=== PATIENT | male | born 1945 | race Caucasian/White ===

== ENCOUNTER → 2019-03-18 | Outpatient (CLI) | payer OTHER ==
[~2019-03-18] MED LIST: ADVAIR HFA 1112 UNIT; ALBUTEROL INH INH; AMARYL4 MG; ASPIRIN EC81 M1; AUGMENTIN 875875 M1 PO; CARVEDILOL12.5 MG; CIPROFLOXACIN500 M1; COPPER2 MG; DEMADEX20 MG; FISHOIL; GLUCOPHAGE1000 MG; GLUCOSAMINE CH1 EAC7; HYDRALAZINE 5050 MG; K-DUR10 MEQ PO; LASIX 80 MG TAB80 M1 PO; LUTEIN10 MG; OMEGA-31000 MG; POTASSIUM20; SINGULAIR 10 MG10 M1 PO; TAMSULOSIN HCL0.4 MG; TEKTURNA HCT 11 EACH; VASOTEC20 MG; VITAMIN D-32000 UNIT; VITAMIN E400 UNIT; VITAMINC500; ZINC CHELATE50 MG; ZOCOR 20 MG TAB20 M1
--- NOTE | 2019-03-18 16:32 | 2DMMODE ---
[place] [address] 2 D/M-MODE ECHOCARDIOGRAM Name: MIGUELJAROD Gilbert Room: [facility]#: [id number] Admission: 03/18/19 Attend Phys: Bhanu Dennison, Discharge: Date of : 41 Date of Service: 03/18/19 1632 Report #: [id number] THIS REPORT FOR: //name// APPROVED REPORT Study performed: 03/18/2019 12:48:22 EXAM: Comprehensive 2D, Doppler, and color-flow Echocardiogram Patient Location: Out-Patient BSA: 2.38 HR: 60 bpm BP: 150/80 mmHg Other Information Study Quality: Fair Indications Congestive Heart Failure 2D Dimensions IVSd: 15.85 (7-11mm) LVOT Diam: 20.50 (18-24mm) LVDd: 55.21 mm PWd: 13.44 (7-11mm) Ascending Ao: 37.53 (22-36mm) LVDs: 39.20 (25-40mm) Aortic Root: 31.52 mm Volumes Left Atrial Volume (Systole) LA ESV Index: 26.70 mL/m2 Aortic Valve AoV Peak Abelardo.: 1.48 m/s AO Peak Gr.: 8.75 mmHg LVOT Max P.04 mmHg AO Mean Gr.: 4.21 mmHg LVOT Mean P.41 mmHg LVOT Max V: 1.12 m/s AO V2 VTI: 30.13 cm LVOT Mean V: 0.71 m/s NJ (VTI): 2.92 cm2 LVOT V1 VTI: 26.68 cm Mitral Valve E/A Ratio: 1.09 MV Decel. Time: 223.77 ms MV E Max Abelardo.: 0.86 m/s MV PHT: 64.89 ms MVA (PHT): 3.39 cm2 [place] [address] 2 D/M-MODE ECHOCARDIOGRAM Name: JAROD RIVERA Room: [facility]#: [id number] Admission: 03/18/19 Attend Phys: Bhanu Dennison, Discharge: Date of : 41 Date of Service: 03/18/19 1632 Report #: [id number] TDI E/Lateral E': 14.33 E/Medial E': 14.33 Medial E' Abelardo.: 0.06 m/s Lateral E' Abelardo.: 0.06 m/s Pulmonary Valve PV Peak Abelardo.: 1.09 m/s PV Peak Gr.: 4.79 mmHg Left Ventricle The left ventricle is normal size. There is normal LV segmental wall motion. Mild concentric left ventricular hypertrophy. Left ventricular systolic function is normal. LVEF is 55-60%. Transmitral Doppler flow pattern suggests impaired LV relaxation. Right Ventricle The right ventricle is normal size. The right ventricular systolic function is normal. Atria The left atrium size is normal. The right atrium size is normal. Aortic Valve Aortic valve is mildly calcified. Mild aortic regurgitation. There is no aortic valvular stenosis. Mitral Valve The mitral valve is normal in structure. There is no mitral valve regurgitation noted. No evidence of mitral valve stenosis. Tricuspid Valve The tricuspid valve is normal in structure. There is no tricuspid valve regurgitation noted. Pulmonic Valve The pulmonary valve is normal in structure. There is no pulmonic valvular regurgitation. Great Vessels The aortic root is normal in size. IVC is normal in size and collapses >50% with inspiration. Pericardium There is no peric[place] [address] 2 D/M-MODE ECHOCARDIOGRAM Name: JAROD RIVERA Room: [facility]#: [id number] Admission: 03/18/19 Attend Phys: Bhanu Dennison, Discharge: Date of : 41 Date of Service: 03/18/19 1632 Report #: [id number] <Conclusion> The left ventricle is normal size. Mild concentric left ventricular hypertrophy. Left ventricular systolic function is normal. LVEF is 55-60%. Transmitral Doppler flow pattern suggests impaired LV relaxation. Aortic valve is mildly calcified. Mild aortic regurgitation. IVC is normal in size and collapses >50% with inspiration. <ELECTRONICALLY SIGNED> By: Chapin Suarez MD, FACC 03/18/19 163 31 31 Chapin Suarez MD, FACC /INF
== END ==
LOC: M.CRD 12:36
DX: I35.8 Other nonrheumatic aortic valve disorders (principal); I35.1 Nonrheumatic aortic (valve) insufficiency; I51.7 Cardiomegaly

== ENCOUNTER 2019-10-16 10:49 | Inpatient (IN) | payer OTHER ==
[~2019-10-16] VITALS: Ht 177.8 cm; Wt 107.5 kg
[~2019-10-16 10:49] MED LIST changes: -ASPIRIN EC81 M1; +ASPIRIN EC81 M1 PO; -CARVEDILOL12.5 MG; +CARVEDILOL25 MG PO; -TAMSULOSIN HCL0.4 MG; +TAMSULOSIN HCL0.4 MG PO
[2019-10-16 10:51] VITALS: BP 128/59
[2019-10-16] MEDS ORDERED: SPIRONOLACTONE25 MG PO (11:06)
[2019-10-16] MEDS ORDERED: DOXAZOSIN MESYLA4 MG PO (11:06)
[2019-10-16] MEDS ORDERED: CLONIDINE HCL0.2 M2 PO (11:06)
[2019-10-16] MEDS ORDERED: PRESERVISION T1 EACH PO (11:07)
[2019-10-16 11:47] LABS: ABSOLUTE BASOPHILS 0.1 thou/uL (0.0-0.2); ABSOLUTE LYMPHOCYTES 1.5 thou/uL (0.8-5.3); ABSOLUTE MONOCYTES 1.1 thou/uL (0.0-1.2); ABSOLUTE NEUTROPHILS 11.6 thou/uL (1.6-8.1); BASOPHILS 0.5 %; HEMATOCRIT 34.2 % (42.0-52.0); HEMOGLOBIN 11.5 gm/dL (14.0-18.0); LYMPHOCYTES 10.7 %; MCH 28.2 pg (26.0-34.0); MCHC 33.5 g/dL (28.0-37.0); MCV 84.1 fL (80.0-100.0); MONOCYTES 7.5 %; MPV 9.7 fl. (7.2-11.1); NUCLEATED RBCS 0 /100WBC; PLATELET COUNT* 221 thou/uL (150-400); POLYS 81.3 %; RBC 4.07 mil/uL (4.50-6.00); RDW-CV 15.4 % (10.5-14.5); WBC 14.3 thou/uL (4.0-11.0)
[2019-10-16 12:02] LABS: APTT 27.5 Seconds (25.0-31.3); INR 1.1; PROTIME 11.6 Seconds (9.20-11.50)
[2019-10-16 12:24] LABS: CALCIUM 9.5 mg/dL (8.5-10.1); CREATININE 3.5 mg/dL (0.6-1.3); POTASSIUM 4.5 mmol/L (3.5-5.1)
[2019-10-16 12:27] LABS: ALBUMIN 3.7 g/dL (3.4-5.0); TOTAL BILIRUBIN 0.4 mg/dL (<0.1-1.0); TOTAL PROTEIN 7.5 g/dL (6.4-8.2)
--- NOTE | 2019-10-16 13:09 | NUR ---
YANELI NOTFIED UPON PT RETURN FROM CT. PT CONNECTED TO MONITOR
[2019-10-16 13:49] LABS: URINE BILIRUBIN NEGATIVE (Negative); URINE BLOOD NEGATIVE (Negative); URINE CLARITY CLEAR; URINE COLOR YELLOW; URINE GLUCOSE-RANDOM NEGATIVE (Negative); URINE KETONES NEGATIVE (Negative); URINE LEUKOCYTES-REFLEX NEGATIVE (Negative); URINE NITRITE-REFLEX NEGATIVE (Negative); URINE PROTEIN NEGATIVE (Negative); URINE UROBILINOGEN 0.2 E.U./dl (0.2-1.0)
--- NOTE | 2019-10-16 14:59 | NUR ---
OBSERVED BED SORE ON BUTTOCKS OF PT. PT STATES HE HAS HAD THAT BED SORE FOR YEARS AND HE JUST PUTS OINTMENT ON IT AT HOME. REPOSITIONED PT TO LEFT SIDE AT 1430
[2019-10-16 15:01] VITALS: BP 133/55
[2019-10-16 15:30] VITALS: BP 123/61
[2019-10-16] MEDS ORDERED: GLIPIZIDE 10 MG10 MG PO (15:51)
[2019-10-16] MEDS ORDERED: TORSEMIDE20 MG PO (15:52)
[2019-10-16] MEDS ORDERED: HYDRALAZINE 5050 MG PO (15:53)
[2019-10-16] MEDS ORDERED: FENOFIBRATE145 MG PO (16:01)
--- NOTE | 2019-10-16 17:18 | EKG ---
[place] [address] ELECTROCARDIOGRAM REPORT Name: JAROD RIVERA Room: [address] ADM IN M.R.#: [id number] Admission: 10/16/19 Attend Phys: Erin Santizo Discharge: Date of : 41 Report #: [id number] THIS REPORT FOR: //name// [facility] ED Test Date: 2019-10-16 Test Time: 11:19:57 Pat Name: JAROD RIVERA Department: Room: [facility] Gender: M Crop Supervisor: : 1945 Requested By: Luz Maria Garza Order Number: [id number] MD: Chapin Suarez Measurements Intervals [place] Rate: 57 P: -38 NH: 299 QRS: -4 QRSD: 110 T: 59 QT: 464 QTc: 452 Interpretive Statements Sinus rhythm Prolonged NH interval Compared to ECG 07/24/2011 21:07:41 First degree AV block now present Myocardial infarct finding no longer present Electronically Signed On 10-16-2019 17:17:35 STUDENT OUTREACH COORDINATOR by Chapin Suarez [email or web address] <ELECTRONICALLY SIGNED> By: Chapin Suarez MD, FACC 10/16/19 1717 1119 1119 Chapin Suarez MD, [facility] /EPI
--- NOTE | 2019-10-16 18:38 | NUR ---
PATIENT ARRIVED FROM ER THIS AFTERNOON. PATIENT SETTLED TO ROOM. ULTRASOUND COMPLETED AT BEDSIDE. PATIENT DENIES ANY PAIN. PATIENT VOIDED WITH POST VOID RESIDUAL OF 313ML. ORDERS FOR MULLEN AND ENEMA, MULLEN PLACE WITHOUT INCIDENT AND ENEMA GIVEN. PATIENT TOLERATING CLEAR LIQUID DIET. PATIENT DENIES ANY NEEDS AT THIS TIME. CALL LIGHT WITHIN REACH.
[2019-10-17 04:35] LABS: HEMATOCRIT 30.2 % (42.0-52.0); HEMOGLOBIN 10.6 gm/dL (14.0-18.0); MCV 82.9 fL (80.0-100.0); RBC 3.65 mil/uL (4.50-6.00); RDW-CV 15.2 % (10.5-14.5); WBC 11.5 thou/uL (4.0-11.0)
[2019-10-17 04:50] LABS: ALBUMIN 3.1 g/dL (3.4-5.0); CALCIUM 8.1 mg/dL (8.5-10.1); CREATININE 2.7 mg/dL (0.6-1.3); MAGNESIUM 2.2 mg/dL (1.8-2.4); POTASSIUM 3.7 mmol/L (3.5-5.1); TOTAL BILIRUBIN 0.4 mg/dL (<0.1-1.0)
--- NOTE | 2019-10-17 05:09 | NUR ---
PT GIVEN GOLYTELY AT START OF SHIFT. PT DRANK ALMOST HALF BEFORE SMALL BOWEL MOVEMENT. PT IS RESTING AT THIS TIME. CALL LIGHT IN REACH.
[2019-10-17 08:05] VITALS: BP 142/55
--- NOTE | 2019-10-17 13:52 | NUR ---
Nutrition: Pt admitted for renal failure/constipation. Assessed for pressure ulcer risk, on buttock. BG 215, albumin 3.1. CLD, good po intake. Wt: 237#. On insulin. Mild nutrition risk. GOALS: advance diet to goal of CHO controlled, tight BG control.
--- NOTE | 2019-10-17 15:28 | NUR ---
WOUND CARE NOTE: PHYSICIAN REQUESTED ASSESSMENT OF RIGHT LEG. PATENT PRESENTS WITH DISCOLORED AREA TO THE ANTERIOR RIGHT MARSH. PATIENTS FAMILY MEMBER STATES THIS WAS A BLISTER THAT RUPTURED THEN DETERIORATED. FAMILY MEMBER STATED THEY HAVE BEEN USING SANTYL ON THIS AT HOME. AREA HAS HEALED. NEW EPITHELIUM COVERING ENTIRETY OF THE WOUND BED. AREA IS DISCOLORED. EDUCATED FAMILY AND PATINET ON PROTECTING THE AREA, COMMUNICATED UNDERSTANDING. RECOMMEND PROTECT AREA FROM TRAUMA/SUN EXPOSURE TO ENSURE REOPENING DOES NOT OCCUR
[2019-10-17 15:30] VITALS: BP 138/59
--- NOTE | 2019-10-17 16:09 | NUR ---
SW met with pt and pt to complete initial assessment, introduce self, and SW role. Pt communicated with SW, pt was silent but alert. Pt lives at home with and is current with [facility] HH services. Pt explained that she discussed options of SNF vs HH with Dr Kelsey but that pt had expressed not wanting to go to SNF. Goal would be home with and HH to resume upon dc. Therapies to evaluate pt needs as well. SW discussed DPOA/AD information and provided forms for pt and pt to review; pt plans to complete and call for notary when ready to sign. SW to continue to follow to assist with safe dc planning.
--- NOTE | 2019-10-17 18:38 | NUR ---
PATIENT RESTING IN BED. PATIENT DENIES ANY PAIN. PATIENT HAS HAD SEVERAL LARGE BOWEL MOVEMENTS TODAY. PATIENT HAS MULLEN CATHETER WITH EXCELLENT OUTPUT. PATIENT HAS GOOD APPETITE. PATIENT DENIES ANY NEEDS AT THIS TIME. CALL LIGHT WITHIN REACH. WILL CONTINUE TO MONITOR.
[2019-10-17 20:00] VITALS: BP 128/48
--- NOTE | 2019-10-18 05:43 | NUR ---
ASSUMED CARE AT 1930. PATIENT RESTED IN BED ALL SHIFT. INCONTINENT OF STOOL, SKIN CARE GIVEN. IVF INFUSING TO RAC. RT MARSH DRESSING C/D/I. NO C/O PAIN. MULLEN DRAINING ANDRE URINE. HOURLY ROUNDS CONTINUE. BED ALARM ON. CALL LITE IN REACH.
[2019-10-18 05:52] VITALS: BP 157/70
[2019-10-18 09:12] LABS: CALCIUM 7.9 mg/dL (8.5-10.1); CREATININE 1.9 mg/dL (0.6-1.3); POTASSIUM 3.4 mmol/L (3.5-5.1)
[2019-10-18 09:45] VITALS: BP 138/64
[2019-10-18 16:00] VITALS: BP 136/57
--- NOTE | 2019-10-18 18:51 | NUR ---
ALERT AND ORIENTED X4. SAT ON SIDE OF BED TODAY. REPOSITIONED/TURNED AT LEAST EVERY 2 HOURS. CREAM APPLIED TO AREA ON LEFT BUTTOCK. DRY DRESSING REMAINS INTACT OVER WOUND ON RIGHT MARSH. INCONTINENT OF LOOSES STOOL X2 TODAY. NO C/O PAIN. CONTINUES TO RECEIVE IVF AT 75ML/HR, CONTINUES TO RECEIVE BREATHING TREATMENTS TO KEEP O2 SAT IN 90'S. CALL LIGHT WITHIN REACH.
[2019-10-18 21:30] VITALS: BP 161/67
--- NOTE | 2019-10-19 05:41 | NUR ---
ASSUMED CARES AT 1920. ALERT AND ORIENTED. PLEASANT. CPAP AT NIGHT. IV TO RIGHT AC WITH NS @ 75 CC/HR. MULLEN CATHTER DD YELLOW URINE. HAD LIQUID STOOL INCONTINENCE. PT SAID THAT DID NOT SLEEP WELL LIKED. CALL LIGHT IN REACH.
[2019-10-19 05:55] VITALS: BP 159/68
[2019-10-19 08:17] VITALS: BP 147/60
[2019-10-19 13:00] VITALS: BP 142/60
[2019-10-19 16:00] VITALS: BP 148/62
--- NOTE | 2019-10-19 18:36 | NUR ---
ASSUMMED CARE OF PT AT 0730, PT ALERT AND ORIENTED,PT DENIES PAIN THIS SHIFT, PT REPOSTIONED EVERY 2 HOURS, NEEDS ASSISTANCE TO ROLL ON SIDES, PT REFUSED TO GET IN CHAIR, PT STATES SLEPT POORLY LAST NIGHT AT HOME HE SLEEPS IN RECLINER, OFFERED TO GET PT RECLINER BUT PT NOT SURE IF HE WANTS ONE OR NOT, MULLEN PATENT AND DRAINING ANDRE URINE, TAKING FOOD AND FLUIDS WELL, IV SALINE LOCK IN RIGHT AC, DRESSING CHANGED TO RIGHT LE, BUTTOCKS RED, BARRIER OINTMENT APPLIED, MODERATE DARK BROWN STOOL X 1 IN BEDPAN AND INCONTINENT X 1 OF STOOL, ASSESSMENT COMPLETE, HOURLY ROUNDING COMPLETED, WILL CONTINUE TO MONITOR.
[2019-10-19 19:50] VITALS: BP 127/73
[2019-10-19 23:57] VITALS: BP 102/60
[2019-10-20 05:46] LABS: HEMATOCRIT 28.2 % (42.0-52.0); HEMOGLOBIN 9.9 gm/dL (14.0-18.0); MCH 29.1 pg (26.0-34.0); MCV 83.1 fL (80.0-100.0); RBC 3.39 mil/uL (4.50-6.00); RDW-CV 15.4 % (10.5-14.5); WBC 8.3 thou/uL (4.0-11.0)
[2019-10-20 05:59] LABS: ALBUMIN 2.6 g/dL (3.4-5.0); CALCIUM 7.4 mg/dL (8.5-10.1); CREATININE 1.7 mg/dL (0.6-1.3); POTASSIUM 3.5 mmol/L (3.5-5.1); TOTAL BILIRUBIN 0.4 mg/dL (<0.1-1.0); TOTAL PROTEIN 6.2 g/dL (6.4-8.2)
--- NOTE | 2019-10-20 06:09 | NUR ---
PT ALERT AND ORIENTED. VSS ON RA. CPAP @HS. PT ADMITTED TO SLEPEING BETTER THAN HE EVER HAS SINCE BEING IN THE HOSPITAL. Q2 TURN. MULLEN IN PLACE. CALL LIGHT WITHIN REACH. HOURLY ROUNDINGS MADE. WILL CONTINUE PLAN OF CARE.
[2019-10-20 07:08] VITALS: BP 163/76
--- NOTE | 2019-10-20 07:58 | NUR ---
PT'S CATHETER WAS LEAKING THIS AM. COMPLETE BEDCHANGE HAD TO BE DONE. PT WANTED NEW CATHETER INSERTED. OLD CATHETER DC'D AND NEW CATHETER INSERTED.
--- NOTE | 2019-10-20 12:26 | NUR ---
ASSUMED CARE OF PATIENT AT 1200, REPORT RECEIVED FROM BERNY MORELOS. AGREE WITH PREVIOUS ASSESSMENT. DENIES ANY PAIN. MULLEN PATENT AND DRAINING. AT BEDSIDE. CALL LIGHT WITHIN REACH. WILL CONTINUE WITH PLAN OF CARE.
--- NOTE | 2019-10-20 14:20 | NUR ---
WOUND NURSE: PATIENT SEEN TO ADDRESS POTENTIAL LESION ON BUTTOCKS, BUT PATIENT WAS IN THE MIDDLE OF HIS LUNCH WHILE VISITING WITH HIS . HIS NURSE, MOLLY REPORTS THEY ARE USING BARRIER CREAM NOW. EXPLAINED TO PATIENT I WOUND RESCHEDULE FOR HIM TO BE SEEN TOMORROW. HE AND HIS ARE IN AGREEMENT WITH THIS.
[2019-10-20 16:15] VITALS: BP 154/74
--- NOTE | 2019-10-20 16:22 | NUR ---
SPOKE WITH UROLOGY NURSE PRACTITIONER AND ORDERS RECEIVED REGARDING MULLEN BEING DISCONTINUED. INFORMED PATIENT OF NEW ORDERS AND PATIENT REFUSED AT THIS TIME TO HAVE MULLEN REMOVED AND WILL WAIT UNTIL MORNING FOR VOIDING TRIAL. AT BEDSIDE DURING THIS TIME. CALL LIGHT WITHIN REACH. WILL CONTINUE WITH PLAN OF CARE.
--- NOTE | 2019-10-20 16:47 | NUR ---
PATIENT HAS BEEN A/O X 4. HAD COMPLAINTS OF PAIN FROM MULLEN CATHETER, ADDRESSED WITH UROLOGY AND PATIENT WANTING TO WAIT TO HAVE MULLEN REMOVED IN AM PLANNED. PATIENT TURNED EVERY 2 HOURS. BLOOD SUGAR MONITORED AND INSULIN GIVEN WITH LUNCH. PATIENT INCONTINENT OF STOOL X 1 THIS AFTERNOON. MULLEN PATENT AND DRAINING. AT BEDSIDE THROUGHOUT THE SHIFT. WORKED WITH PT/OT THIS SHIFT. HOURLY ROUNDING COMPLETED. CALL LIGHT WITHIN REACH. REPORT GIVEN TO BERNY PARTIDA WHO WILL BE ASSUMING CARE OF PATIENT. WILL CONTINUE WITH PLAN OF CARE.
--- NOTE | 2019-10-20 17:43 | NUR ---
SW met with pt and pt who are now wanting pt to be able to dc to inpt rehab [facility] or possible to SNF if unable to be accepted to inpt rehab. SW to continue to follow to assist with safe dc planning/placement; will be pending acceptance and insurance auth.
[2019-10-20 21:00] VITALS: BP 185/86
[2019-10-21] VITALS: BP 153/69
--- NOTE | 2019-10-21 07:03 | NUR ---
PATIENT SLEPT MOST OF THE NIGHT. IV REMAINS SALINE LOCKED. PATIENT HAD NO COMPLAINTS OF PAIN. ORDERS TO DISCONTINUE MULLEN THIS MORNING AND START VOIDING TRIAL. PATIENT COULD POSSIBLY DC TO A FACILITY TODAY. WILL CONTINUE TO MONITOR.
[2019-10-21 08:31] VITALS: BP 131/69
--- NOTE | 2019-10-21 13:49 | NUR ---
FAXED REFERRAL TO [facility]. WILL FOLLOW UP WITH MOY/LOIDA.
--- NOTE | 2019-10-21 15:19 | NUR ---
WOUND CARE NOTE: ATTEMPTED TO ASSESS PATIENT'S BUTTOCKS/SACRUM/COCCYX AREA. HOWEVER, PATIENT IN CHAIR AND IS A DIFFICULT TRANSFER PER PATIENT'S RN. REQUESTED PATIENT NOTIFY ONCOMING SHIFT TO NOTIFY WOUND RN WHEN TRANSFERRING TOMORROW SO THE ASSESSMENT CAN BE PERFORMED.
[2019-10-21 15:30] VITALS: BP 163/74
--- NOTE | 2019-10-21 15:53 | NUR ---
CALLED MOY/LOIDA AT [facility] AT [phone]. LEFT MESSAGE ON CONFIDENTIAL VM TO FOLLOW UP WITH MARLENI/ASHWIN.
--- NOTE | 2019-10-21 17:10 | NUR ---
SW met with pt about dc planning and referral to [facility] SNF. SW spoke with admissions at [facility] and they can accept but dc is pending auth. Pt said she called insurance and they initially denied SNF put pt said that Dr Escalante would help with appeal and pt would plan on appeal too. SW to continue to follow to assist with finalizing safe dc plan/snf placement.
--- NOTE | 2019-10-21 18:21 | NUR ---
ASSUMED CARE AT 0730. ALERT ORIENTED PLEASANT COOPERATIVE. HX OF RENAL FAILURE PAST INABILITY TO HAVE BM FOR PROLONGED TIME. PTS. SITTING UP IN CHAIR AT BEDSIDE. MULLEN CATHETER WAS REMOVED THIS A.M. PT. HAS ONLY VOIDED 25-50CCS IN URINAL SEVERAL TIMES 1 PVR WAS 216CC. ANOTHER 40CCS. 16 MALAY REPLACED THIS AFTERNOON AROUND 330 P.M. URINE CLOUDY SMALL AMT. BLOOD NOTED WITH INSERTION. PT. HAS ENLARGED PROSTATE. SOA WITH EXERTION TRANSFERS WITH 2 ASSIST G BELT WALKER ABLE TO DO A FEW STEPS FROM RECLINER TO BSC. REDNES ON BUTTOCKS NO OPEN AREA NOTED. PT. HAD INCONTINENT LOOSE BM IN CHUX JOYCE CARE GIVEN. TURNED EVERY 2 HRS. TEMP WAS ELEVATED AROUND 1740. AXILARY 103.1 ORAL 100.1 P 114 965 O2 SAT RA. PAGE OUT TO DR. ANDERSON AT 1830 TEMP AX 102.AT SUPPER UT IS SHOUTING OUT WILIAN FOR ASSISTANCE.
[2019-10-21 20:00] VITALS: BP 118/82
[2019-10-21 20:00] LABS: HEMATOCRIT 32.7 % (42.0-52.0); HEMOGLOBIN 11.2 gm/dL (14.0-18.0); MCH 28.3 pg (26.0-34.0); MCHC 34.4 g/dL (28.0-37.0); MCV 82.3 fL (80.0-100.0); MPV 8.8 fl. (7.2-11.1); RBC 3.97 mil/uL (4.50-6.00); RDW-CV 15.1 % (10.5-14.5); WBC 15.6 thou/uL (4.0-11.0)
[2019-10-21 20:11] LABS: CREATININE 1.9 mg/dL (0.6-1.3); POTASSIUM 3.8 mmol/L (3.5-5.1)
[2019-10-21 20:52] LABS: URINE BILIRUBIN NEGATIVE (Negative); URINE BLOOD 3+ (Negative); URINE CLARITY SL CLOUDY; URINE COLOR YELLOW; URINE GLUCOSE-RANDOM 2+ (Negative); URINE KETONES 1+ (Negative); URINE LEUKOCYTES 2+ (Negative); URINE NITRITE POSITIVE (Negative); URINE PROTEIN 2+ (Negative); URINE UROBILINOGEN 0.2 E.U./dl (0.2-1.0)
[2019-10-21 21:07] LABS: INFLUENZA A ANTIGEN Negative (Negative); INFLUENZA B ANTIGEN Negative (Negative)
[2019-10-21 21:12] LABS: BACTERIA >30 Many /HPF (None Seen); URINE RBC >20 Many /HPF (0-2)
[2019-10-21 21:13] LABS: CRYSTALS None Seen /LPF (None Seen); MUCUS None Seen strn/LPF (None Seen); SQUAMOUS NONE SEEN /LPF (0-3); URINE WBC >25 Many /HPF (0-5); WBC CLUMPS Few (None Seen)
[2019-10-21 21:15] LABS: HYALINE CASTS 0-3 Few /LPF (None Seen)
[2019-10-22 00:04] VITALS: BP 158/77
--- NOTE | 2019-10-22 06:21 | NUR ---
PATIENT SLEPT PART OF THE NIGHT. BEGINNING OF SHIFT TEMP WAS 101.9 AXILLARY STILL TYLENOL WAS GIVEN. UA AND FLU SWAB WERE SENT TO LAB PER ORDERS. UA SHOWED A UTI WAS NOTIFIED AND PATIENT WAS STARTED ON IV ROCEPIN. FLU SWAB WAS NEAGATIVE. PATIENT TEMP IMPROVED WITH TYLENOL BUT REMAINS LOW GRADE AT 99.3. MULLEN REMAINS TO DEPENDENT DRAIN. WILL CONTINUE TO MONITOR.
[2019-10-22 08:20] VITALS: BP 141/69
[2019-10-22 10:43] VITALS: BP 158/77
--- NOTE | 2019-10-22 15:29 | NUR ---
SITA met with pt and pt this morning about pending SNF placement; insurance auth is still pending. SW called Bianca with [facility] and confirmed that insurance is still pending and they plan to still accept pt to SNF at [facility] when insurance auth is received. Pt left SW a message stating that Jose had given auth for SNF but SW checked with [facility] again and there was not auth received at that time. SW to continue to follow to assist with safe dc planning/finalizing snf placement.
[2019-10-22 16:00] VITALS: BP 114/70
--- NOTE | 2019-10-22 18:08 | NUR ---
PATIENT RESTING IN BED. PATIENT UP TO CHAIR THIS AM. PATIENT IS UP WITH ASSIST OF 2 WITH GAIT BELT AND WALKER. PATIENT HAD FEVER THIS AFTERNOON, TYLENOL GIVEN. PATIENT IS AFEBRILE THIS EVENING. PATIENT HAS FAIR APPETITE. PATIENT DENIES ANY PAIN. PATIENT DENIES ANY NEEDS AT THIS TIME. CALL LIGHT WITHIN REACH. WILL CONTINUE TO MONITOR.
[2019-10-22 20:00] VITALS: BP 179/82
[2019-10-22 23:59] VITALS: BP 156/74
[2019-10-23 04:17] LABS: ABSOLUTE BASOPHILS 0.1 thou/uL (0.0-0.2); ABSOLUTE EOSINOPHILS 0.2 thou/uL (0.0-0.7); ABSOLUTE MONOCYTES 0.8 thou/uL (0.0-1.2); BASOPHILS 0.5 %; EOSINOPHILS 1.6 %; HEMATOCRIT 29.4 % (42.0-52.0); HEMOGLOBIN 10.3 gm/dL (14.0-18.0); LYMPHOCYTES 9.2 %; MCHC 35.2 g/dL (28.0-37.0); MCV 82.5 fL (80.0-100.0); MONOCYTES 6.8 %; MPV 9.4 fl. (7.2-11.1); NUCLEATED RBCS 0 /100WBC; PLATELET COUNT* 162 thou/uL (150-400); POLYS 81.9 %; RBC 3.56 mil/uL (4.50-6.00); RDW-CV 15.1 % (10.5-14.5)
[2019-10-23 04:42] LABS: POTASSIUM 3.5 mmol/L (3.5-5.1)
--- NOTE | 2019-10-23 06:13 | NUR ---
PATIENT SLEPT MOST OF THE NIGHT. PATIENT HAS CONTINUED TO RUN A TEMP MOST OF THE NIGHT HIGHEST WAS 101.8 AT BEGINNING OF SHIFT. TYLENOL WAS GIVEN TWICE FOR TEMP. THIS MORNING HIS TEMP IS 100.3. MULLEN REMAINS TO DEPENDENT DRAIN. WILL CONTINUE TO MONITOR.
[2019-10-23 08:10] VITALS: BP 151/74
--- NOTE | 2019-10-23 14:48 | NUR ---
SITA received message back from Bianca at [facility] stating that the SNF received auth for pt to be accepted to SNF. No beds available today and pt with fever so plan for dc tomorrow to [facility] SNF. SITA discussed with pt nurse and with pt . SW to continue to follow to assist with safe dc planning and finalizing snf placement at [facility]. [facility] ph [phone]
--- NOTE | 2019-10-23 16:43 | NUR ---
WOUND CARE NOTE: BUTTOCK ASSESSMENT PATIENT WAS IN BED, ABLE TO BE ASSESSED FOR WOUNDS TO HIS BOTTOM. PATIENT HAS A PARTIAL THICKNESS LESION NEAR A SKIN TAG TO THE LEFT BUTTOCK. BELIEVE IT IS JUST IRRITATED FROM STOOLING AND POSSIBLY TRAUMA TO THE SKIN TAG. ASSISTED PATIENT'S RN WITH REMOVING BRIEF AND CLEANSING AN INCONTINENT EPISODE OF STOOL. BARRIER OINTMENT WAS APPLIED. RECOMMEND CONTINUE WITH TURNS COTNINUE USING BARRIER OINTMENT BID AND PRN NO BRIEFS IN BED WAFFLE CUSHION WHEN IN CHAIR.
[2019-10-23 16:55] VITALS: BP 136/56
--- NOTE | 2019-10-23 18:15 | NUR ---
PATIENT RESTING IN BED. PATIENT IS UP WITH MAX ASSIST OF 2 WITH GAIT BELT. PATIENT HAS DENIED ANY PAIN. PATIENT HAS HAD FEVER TODAY, TYLENOL GIVEN. DR TOBIN CONSULTED AND ANTIBIOTIC CHANGES MADE. NEW IV STARTED TO RIGHT FOREARM. PATIENT HAS POOR APPETITE, ENSURE GIVEN. PATIENT DENIES ANY NEEDS AT THIS TIME. CALL LIGHT WITHIN REACH. WILL CONTINUE TO MONITOR.
[2019-10-23 19:21] LABS: URINE BILIRUBIN NEGATIVE (Negative); URINE BLOOD 1+ (Negative); URINE CLARITY CLEAR; URINE COLOR YELLOW; URINE GLUCOSE-RANDOM 1+ (Negative); URINE KETONES NEGATIVE (Negative); URINE NITRITE-REFLEX NEGATIVE (Negative); URINE PROTEIN 1+ (Negative); URINE SPECIFIC GRAVITY 1.025 (1.005-1.030); URINE UROBILINOGEN 0.2 E.U./dl (0.2-1.0)
[2019-10-23 19:23] LABS: URINE LEUKOCYTES-REFLEX 2+ (Negative)
[2019-10-23 19:33] LABS: HYALINE CASTS 0-3 Few /LPF (None Seen)
[2019-10-23 19:34] LABS: CRYSTALS None Seen /LPF (None Seen); URINE WBC-REFLEX >25 Many /HPF (0-5)
[2019-10-23 19:35] LABS: MUCUS None Seen strn/LPF (None Seen); SQUAMOUS NONE SEEN /LPF (0-3); URINE RBC 3-10 Few /HPF (0-2)
[2019-10-23 21:00] VITALS: BP 184/63
[2019-10-24] VITALS: BP 133/56
[2019-10-24 06:15] VITALS: BP 162/70
--- NOTE | 2019-10-24 07:55 | CON ---
[address] [address] CONSULTATION Name: MIGUELJAROD Hunt Room: [address] IN .R.#: [id number] Admission: 10/16/19 Attend Phys: Erin Santizo Discharge: Date of : 41 Report #: [id number] THIS REPORT FOR: //name// CC: Hilton Kelsey DATE OF SERVICE: 10/23/2019 INFECTIOUS DISEASE CONSULTATION ATTENDING PHYSICIAN: Sharon Kelsey MD REASON FOR EVALUATION: Nosocomial fevers. HISTORY OF PRESENT ILLNESS: Chart reviewed. The patient examined. This is a 73-year-old with fairly extensive medical history, has diabetes mellitus complicated by vasculopathy, has known nephropathy with chronic renal insufficiency, also has sleep apnea, who was admitted with abdominal related pain, was felt to have a fecal impaction as well as urinary retention. This seemingly was corrected; however, over the course of the last 48-72 hours, he has had fevers with some been as high as 101.9. Hemodynamically, he is not overtly unstable as saturations have been okay. He is encephalopathic. Evaluation was undertaken. Blood cultures collected 2 days ago, sterile thus far. Most recent CBC shows a white count of 11.0. Influenza antigen was negative. Urinalysis did show some marked pyuria. Previous CT of the pelvis on admission as related to the abdominal pain showed scattered diverticula without obvious diverticulitis, possible gallstones, left adrenal mass, multiple renal masses, most likely cysts. Followup ultrasound showed numerous cysts arising from both kidneys. There were no suspicious solid masses present, mild hydronephrosis present bilaterally, no obstructing solid mass was noted, no high-grade hydronephrosis or hydroureter. ALLERGIES: None known. MEDICATIONS: Include ceftriaxone, acetaminophen, insulin lispro sliding scale, clonidine, albuterol, budesonide, and tamsulosin. 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 SOCIAL HISTORY: Former smoker. No ethanol. No illicit drug use. FAMILY HISTORY: [place] [address] CONSULTATION Name: MIGUELJAROD Room: [address] IN [facility]#: [id number] Admission: 10/16/19 Attend Phys: Erin Santizo Discharge: Date of : 41 Report #: [id number] REVIEW OF SYSTEMS: Does admit to the shakes, I think this is more typical of the tremors. He has had some anorexia with poor p.o. intake. Denies significant nausea. No abdominal related pain. He has had some difficulty voiding at times. PHYSICAL EXAMINATION: GENERAL: Appears somewhat chronically ill. He is obese, undernourished. VITAL SIGNS: Temperature earlier 101.2, blood pressure 156/74, respirations 19. SKIN: Warm, slightly damp. HEENT: Normocephalic. Extraocular muscles are intact. NECK: Supple, somewhat thick. HEART: Regular. I do not appreciate a murmur. LUNGS: Few scattered coarse breath sounds, some crackles at the bases. ABDOMEN: Protuberant, soft, nontender. AND RECTAL: Deferred. LABORATORY DATA: As described above, blood cultures are sterile thus far. Most recent electrolytes; sodium 137, potassium 3.5, chloride 103, bicarbonate is 21, anion gap of 13, BUN and creatinine 30 and 2.0. CBC: White count of 11.0, H and H 10.3 and 29.4, and platelets 162. Urinalysis is greater than 25 white cells, greater than 30 bacteria. Influenza antigen A and B were both negative. Liver functions from the 6th are otherwise unremarkable. Albumin of 2.6. Total protein 6.2. Estimated GFR of 39. ASSESSMENT AND PLAN: Nosocomial fevers. The patient presented with abdominal related signs and symptoms. He does have clearly abnormal kidneys with multiple cysts, has had marked pyuria, likely this is the source. I cannot entirely exclude pneumonitis. I will check a chest x-ray and influenza being another concern given the time of year. It is not entirely clear that urine culture was done. We will collect that. We will adjust antimicrobial therapy, adjusted for his renal insufficiency. <ELECTRONICALLY SIGNED> By: Agapito Menjivar MD 10/24/19 0755 1423 [id number] Menjivar MD /nt
[2019-10-24 08:00] VITALS: BP 137/60
--- NOTE | 2019-10-24 08:05 | NUR ---
ASSUMED CARE AT 1920. ALERT AND ORIENTED. CPAP AT NIGHT. SALINE LOCK TO RIGHT FA. DENIED ANY PAIN. MULLEN CATHETER DD YELLOW URINE. INCONTINENT OF SOFT STOOL. NASAL FLU SWAB OBTAINED AND SENT TO LAB. BARRIER CREAM APPLIED TO BUTTOCKS. PT TURNED THROUGHOUT THE NIGHT. CALL LIGHT LIGHT IN REACH.
[2019-10-24 08:24] LABS: INFLUENZA A ANTIGEN Negative (Negative); INFLUENZA B ANTIGEN Negative (Negative)
[2019-10-24 11:35] LABS: ABSOLUTE BASOPHILS 0.1 thou/uL (0.0-0.2); ABSOLUTE EOSINOPHILS 0.3 thou/uL (0.0-0.7); ABSOLUTE LYMPHOCYTES 0.9 thou/uL (0.8-5.3); ABSOLUTE MONOCYTES 0.8 thou/uL (0.0-1.2); ABSOLUTE NEUTROPHILS 6.2 thou/uL (1.6-8.1); BASOPHILS 0.8 %; EOSINOPHILS 3.6 %; HEMATOCRIT 28.2 % (42.0-52.0); HEMOGLOBIN 9.7 gm/dL (14.0-18.0); LYMPHOCYTES 11.3 %; MCH 28.5 pg (26.0-34.0); MCHC 34.3 g/dL (28.0-37.0); MCV 83.2 fL (80.0-100.0); MONOCYTES 9.2 %; MPV 9.4 fl. (7.2-11.1); NUCLEATED RBCS 0 /100WBC; PLATELET COUNT* 179 thou/uL (150-400); POLYS 75.1 %; RBC 3.39 mil/uL (4.50-6.00); RDW-CV 15.2 % (10.5-14.5); WBC 8.3 thou/uL (4.0-11.0)
[2019-10-24 11:46] LABS: CALCIUM 8.2 mg/dL (8.5-10.1); CREATININE 1.9 mg/dL (0.6-1.3); POTASSIUM 3.9 mmol/L (3.5-5.1)
--- NOTE | 2019-10-24 15:34 | NUR ---
SITA informed that pt would not be ready to dc today after all due to need to continue empiric abx. SITA spoke with Argenis in admissions at [facility] to follow up on possible admission to [facility] tomorrow ph [phone] and fax final dc orders to fax [phone]
[2019-10-24 15:44] VITALS: BP 151/71
--- NOTE | 2019-10-24 17:27 | NUR ---
PATIENT RESTING IN BED. PATIENT WAS UP TO CHAIR THIS MORNING AND AFTERNOON. PATIENT IS UP WITH MODERATE ASSIST WITH WALKER AND GAIT BELT. PATIENT HAS POOR APPETITE BUT IS SUPPLEMENTING WITH GLUCERNA. PATIENT DENIES ANY NEEDS AT THIS TIME. CALL LIGHT WITHIN REACH.
[2019-10-25] VITALS: BP 144/70
[2019-10-25 04:21] LABS: ABSOLUTE BASOPHILS 0.1 thou/uL (0.0-0.2); ABSOLUTE EOSINOPHILS 0.3 thou/uL (0.0-0.7); ABSOLUTE LYMPHOCYTES 1.2 thou/uL (0.8-5.3); ABSOLUTE MONOCYTES 0.8 thou/uL (0.0-1.2); BASOPHILS 0.9 %; EOSINOPHILS 4.6 %; MCH 28.6 pg (26.0-34.0); MCHC 34.7 g/dL (28.0-37.0); MCV 82.4 fL (80.0-100.0); MONOCYTES 12.4 %; MPV 9.1 fl. (7.2-11.1); NUCLEATED RBCS 0 /100WBC; PLATELET COUNT* 178 thou/uL (150-400); POLYS 63.1 %; RBC 3.16 mil/uL (4.50-6.00); RDW-CV 15.3 % (10.5-14.5); WBC 6.4 thou/uL (4.0-11.0)
[2019-10-25 04:38] LABS: ALBUMIN 2.1 g/dL (3.4-5.0); CALCIUM 8.1 mg/dL (8.5-10.1); CREATININE 1.7 mg/dL (0.6-1.3); POTASSIUM 3.7 mmol/L (3.5-5.1); TOTAL BILIRUBIN 0.2 mg/dL (<0.1-1.0)
--- NOTE | 2019-10-25 06:32 | NUR ---
ASSESSMENT COMPLETED CHARTED. SEE MAR. PROGRESSING TOWARDS GOALS. FALL PRECAUTIONS IN PLACE. HOURLY ROUNDING FOR SAFETY.
[2019-10-25 08:00] VITALS: BP 151/77
[2019-10-25 16:00] VITALS: BP 166/77
--- NOTE | 2019-10-25 18:47 | NUR ---
PT A&OX4 VSS. PT HAS MULLEN FOR URINARY RETENTION. CATHETER IS PATENT, YELLOW URINE VISIBLE IN COLLECTION BAG. PT HAS IV TO LFA, PATENT AND SALINE LOCKED. CPAP AT BEDSIDE. PT REMAINS AFEBRILE. PT REPORTED TO BE UP W/ ASSIST X2 W/WALKER. PT STATYED IN BED THIS SHIFT. ASSISTED TO REPOSITION FOR SKIN INTEGRITY. PT PROVIDED ENSURE SUPPLEMENTS. PT IS ACCUCHECK, INSULIN ADMINISTERED INDICATED. PT RESTS IN BED WITH CALL LIGHT IN REACH. WILL CONTINUE TO MONITOR.
[2019-10-25 20:00] VITALS: BP 209/91
[2019-10-26 00:41] VITALS: BP 161/80
[2019-10-26 04:36] LABS: HEMATOCRIT 26.9 % (42.0-52.0); HEMOGLOBIN 9.3 gm/dL (14.0-18.0); MCH 28.5 pg (26.0-34.0); MCHC 34.7 g/dL (28.0-37.0); MCV 82.1 fL (80.0-100.0); MPV 8.6 fl. (7.2-11.1); NUCLEATED RBCS 0 /100WBC; PLATELET COUNT* 201 thou/uL (150-400); RBC 3.28 mil/uL (4.50-6.00); RDW-CV 15.6 % (10.5-14.5); WBC 8.9 thou/uL (4.0-11.0)
[2019-10-26 05:01] LABS: ALBUMIN 2.1 g/dL (3.4-5.0); CALCIUM 8.6 mg/dL (8.5-10.1); CREATININE 1.6 mg/dL (0.6-1.3); POTASSIUM 3.9 mmol/L (3.5-5.1); TOTAL BILIRUBIN 0.2 mg/dL (<0.1-1.0); TOTAL PROTEIN 6.2 g/dL (6.4-8.2)
[2019-10-26 06:50] LABS: ABSOLUTE EOSINOPHILS 0.3 thou/uL (0.0-0.7); ABSOLUTE LYMPHOCYTES 1.2 thou/uL (0.8-5.3); ABSOLUTE MONOCYTES 0.4 thou/uL (0.0-1.2); ANISOCYTOSIS 1+; PLATELET ESTIMATE ADEQUATE; POIKILOCYTOSIS 1+
[2019-10-26 08:05] VITALS: BP 156/70
--- NOTE | 2019-10-26 08:19 | NUR ---
SOMEWHAT PROGRESSION TOWARDS GOALS, DENIES PAIN OR DISCOMFORT, REFUSING ASSIST WITH REPOSITIONING Q2 AND PRN, STATES READY FOR BED AND DOESNT WANT TO BE BOTHERED, EDUCATED RISK FOR COMPLICATIONS INCLUDING FURTHER SKIN BREAKDOWN WHEN NOT REPOSITIONING AT LEAST Q2 HOURS, PT VERBALIZED UNDERSTANDING BUT CONTINUES TO REFUSE CARES AFTER APROX 2200, PT ALSO REFUSING SCHEDULED BREATHING TREATMENTS DURING NOC, REFUSING TO BE AWOKEN DURING DURING NOC, HTN HS B/P 209/91, SCHEDULED CLONODINE 0.2MG AND HYDRALAZINE 50MG PO GIVEN AND HELPFUL, B/P DECREASED TO 161/80, FEBRILE LOW GRADE TEMP 100.2 AXILLARY, TEMP DECREASED TO 99.1 AXILLARY WITHOUT INTERVENTIONS, HOME CPAP IN USE DURING NOC. SAFETY MAINTAINED.
[2019-10-26 16:00] VITALS: BP 144/73
--- NOTE | 2019-10-26 17:31 | NUR ---
PT A&OX4 VSS. Q2H TURN AND APPLY CREAM TO BUTTOCKS FOR SKIN INTEGRITY. PT AFEBRILE THIS SHIFT. PT DENIES PAIN. CPAP AT BEDSIDE, PT USES DESIRED. PT USES ENSURE SUPPLEMENTS. IV TO LFA DC'D AND NEW LINE STARTED TO R WRIST/HAND. PT HAS MULLEN FOR URINARY RETENTION. CATHETER IS PATENT AND YELLOW URINE VISIBLE IN COLLECTION BAG. UROLOGY CONSULTED. UA ORDERED AND COLLECTED VIA CATHETER. PT RESTS IN ROOM WITH CALL LIGHT IN REACH. WILL CONTINUE TO MONITOR.
[2019-10-26 20:00] VITALS: BP 172/77
[2019-10-27 00:56] LABS: URINE BILIRUBIN NEGATIVE (Negative); URINE BLOOD 1+ (Negative); URINE CLARITY CLEAR; URINE COLOR YELLOW; URINE GLUCOSE-RANDOM NEGATIVE (Negative); URINE KETONES NEGATIVE (Negative); URINE LEUKOCYTES-REFLEX 1+ (Negative); URINE NITRITE-REFLEX NEGATIVE (Negative); URINE PROTEIN TRACE (Negative); URINE SPECIFIC GRAVITY 1.025 (1.005-1.030); URINE UROBILINOGEN 0.2 E.U./dl (0.2-1.0)
[2019-10-27 01:10] LABS: BACTERIA-REFLEX >30 Many /HPF (None Seen); COARSE GRANULAR CASTS 0-3 Few /LPF (None Seen); CRYSTALS None Seen /LPF (None Seen); FINE GRANULAR CASTS 0-3 Few /LPF (None Seen); MUCUS 4-6 Moderate strn/LPF (None Seen); SQUAMOUS 0-3 Few /LPF (0-3); URINE WBC-REFLEX >25 Many /HPF (0-5); WBC CLUMPS Moderate (None Seen)
[2019-10-27 04:22] LABS: ABSOLUTE BASOPHILS 0.1 thou/uL (0.0-0.2); ABSOLUTE EOSINOPHILS 0.3 thou/uL (0.0-0.7); ABSOLUTE LYMPHOCYTES 1.6 thou/uL (0.8-5.3); ABSOLUTE NEUTROPHILS 5.8 thou/uL (1.6-8.1); EOSINOPHILS 3.1 %; HEMATOCRIT 27.2 % (42.0-52.0); HEMOGLOBIN 9.4 gm/dL (14.0-18.0); LYMPHOCYTES 18.3 %; MCH 28.2 pg (26.0-34.0); MCHC 34.4 g/dL (28.0-37.0); MCV 82.1 fL (80.0-100.0); MONOCYTES 11.1 %; MPV 8.4 fl. (7.2-11.1); NUCLEATED RBCS 0 /100WBC; PLATELET COUNT* 203 thou/uL (150-400); POLYS 66.5 %; RBC 3.31 mil/uL (4.50-6.00); RDW-CV 15.6 % (10.5-14.5); WBC 8.8 thou/uL (4.0-11.0)
[2019-10-27 04:43] LABS: ALBUMIN 2.2 g/dL (3.4-5.0); CALCIUM 8.4 mg/dL (8.5-10.1); CREATININE 1.6 mg/dL (0.6-1.3); TOTAL BILIRUBIN 0.2 mg/dL (<0.1-1.0); TOTAL PROTEIN 6.2 g/dL (6.4-8.2)
--- NOTE | 2019-10-27 05:20 | NUR ---
PT SLEPT WELL OVERNIGHT. MULLEN DRAINING YELLOW URINE, SPECIMEN SENT TO LAB FOR CULTURE ORDERED-PENDING. BM SMEAR. BUTTOCKS WITH OPEN AREA, JOYCE CARE GIVEN AND BARRIER CREAM APPLIED. PT TURNED AND REPOSITIONED Q2 HOURS AND PRN PT WOULD ALLOW. RWRIST SL, ABX GIVEN ORDERED.AM LABS DRAWN. HS ACCUCHECK 225, INSULIN GIVEN ORDERED. CM ASSISTING WITH DC PLAN FOR REHAB. TO FOLLOW UP WITH UROLOGY OUTPT FOR VOID TRIAL. ROOM AIR, CPAP AT HS FROM HOME. ABLE TO USE CALL LITE AND MAKE NEEDS KNOWN.BED ALARM ON FOR SAFETY.
[2019-10-27 08:37] VITALS: BP 136/57
--- NOTE | 2019-10-27 12:27 | NUR ---
FAXED PT&OT UPDATES TO [facility]. DCP TO FOLLOW REGARDING CONFIRMATION.
[2019-10-27] MEDS ORDERED: ALBUTEROL2.5 MG/31 INH (14:36)
[2019-10-27] MEDS ORDERED: HUMALOG100 UNIT/1 SUBQ (14:37)
[2019-10-27] MEDS ORDERED: PULMICORT0.5 MG/2 M INH (14:40)
[2019-10-27] MEDS ORDERED: TYLENOL325 MG PO (14:44)
[2019-10-27] MEDS ORDERED: CEFDINIR300 MG PO (14:46)
[2019-10-27 15:28] VITALS: BP 156/64
--- NOTE | 2019-10-27 15:32 | NUR ---
SITA met with pt this morning to discuss pt ready to dc to SNF today and SITA left message for Argenis at [facility] to confirm pt can admit to V today. SITA attempted several times throughout the day and this afternoon received call from [facility] to confirm that pt still accepted but insurance auth Sunday and so dc will be pending insurance auth again. [facility] [phone]
[2019-10-27 20:00] VITALS: BP 153/71
--- NOTE | 2019-10-27 20:07 | NUR ---
PATIENT AWAKE IN BED. PATIENT TURNED AND REPOSITIONED Q2. ALL SAFETY MEASURES MAINTAINED. PATIENT DENIES FURTHER NEEDS AT THIS TIME.
[2019-10-28 04:09] LABS: ABSOLUTE BASOPHILS 0.1 thou/uL (0.0-0.2); ABSOLUTE EOSINOPHILS 0.2 thou/uL (0.0-0.7); ABSOLUTE LYMPHOCYTES 1.6 thou/uL (0.8-5.3); ABSOLUTE MONOCYTES 0.8 thou/uL (0.0-1.2); ABSOLUTE NEUTROPHILS 5.9 thou/uL (1.6-8.1); BASOPHILS 1.2 %; EOSINOPHILS 2.7 %; HEMATOCRIT 27.7 % (42.0-52.0); HEMOGLOBIN 9.5 gm/dL (14.0-18.0); LYMPHOCYTES 18.1 %; MCHC 34.1 g/dL (28.0-37.0); MCV 82.2 fL (80.0-100.0); MONOCYTES 9.8 %; MPV 8.6 fl. (7.2-11.1); NUCLEATED RBCS 0 /100WBC; PLATELET COUNT* 215 thou/uL (150-400); POLYS 68.2 %; RBC 3.38 mil/uL (4.50-6.00); RDW-CV 15.4 % (10.5-14.5); WBC 8.6 thou/uL (4.0-11.0)
[2019-10-28 04:23] LABS: ALBUMIN 2.2 g/dL (3.4-5.0); CALCIUM 8.5 mg/dL (8.5-10.1); CREATININE 1.6 mg/dL (0.6-1.3); POTASSIUM 3.8 mmol/L (3.5-5.1); TOTAL BILIRUBIN 0.2 mg/dL (<0.1-1.0); TOTAL PROTEIN 6.3 g/dL (6.4-8.2)
--- NOTE | 2019-10-28 05:33 | NUR ---
PT SLEPT WELL OVERNIGHT. CPAP ON OVERNIGHT. PT TURNED AND REPOSITIONED HE WOULD ALLOW, JOYCE CARE AND BARRIER CREAM APPLIED. MULLEN DRAINING YELLOW URINE. NEW IV L WRIST SL, ABX GIVEN ORDERED. HS ACCUCHECK 236, INSULIN GIVEN ORDERED. AM LABS. CM FOLLOWING FOR DISCHARGE PLAN REHAB. ABLE TO USE CALL LITE AND MAKE NEEDS KNOWN. BED ALARM ON FOR SAFETY. PT.
[2019-10-28 07:35] VITALS: BP 147/61
--- NOTE | 2019-10-28 14:41 | NUR ---
NUTRITION F/U: PT WT STABLE FROM ADMIT. PREALBUMIN WNL. MEDS REVIEWED. PT REPORTS ONLY FA[facility] APPETITE; HAD EATEN 75% OR MORE OF LUNCH AT VISIT AND WAS STILL EATING. ASSESSED AT LOW NUTRITION RISK.
[2019-10-28 16:00] VITALS: BP 160/75
--- NOTE | 2019-10-28 16:19 | NUR ---
SITA spoke with pt and pt and followed up with Argenis in admissions at [facility] who had not heard back from insurance this morning but this afternoon, insurance requested updated progress notes and therapy notes. SITA faxed [facility] needed information as soon as available and informed Argenis of fax sent. SITA to continue to follow to assist with finalizing SNF placement pending insurance to authorize.
--- NOTE | 2019-10-28 17:09 | NUR ---
I have reviewed the documentation by KELLEN RICHARDSON from 10/28/19 to 10/28/19 and I concur with it. EULALIA WASHINGTON
--- NOTE | 2019-10-28 17:09 | NUR ---
I have reviewed the documentation by KELLEN RICHARDSON from 10/27/19 to 10/27/19 and I concur with it. EULALIA WASHINGTON
--- NOTE | 2019-10-28 18:37 | NUR ---
PATIENT AWAKE IN BED. ALL SAFETY MEASURES MAINTAINED. PATIENT DENIES FURTHER NEEDS AT THIS TIME.
--- NOTE | 2019-10-29 04:58 | NUR ---
PT SLEPT WELL OVERNIGHT. TAKING LEVSIN FOR BLADDER SPASMS WITH GOOD RESULT. MULLEN DRAINING YELLOW URINE. PO ABX. NO BM OVERNIGHT, RECEIVING SENNA AT HS. HS ACCUCHECK 184, INSULIN GIVEN. CPAP OVERNIGHT. PT TURNED AND REPOSITIONED Q2 HOURS AND PRN HE WOULD ALLOW FOR SKIN INTEGRITY AND COMFORT. CM ASSISTING WITH DISCHARGE PLAN FOR REHAB. LWRIST TIM IV. ABLE TO USE CALL LITE AND MAKE NEEDS KNOWN.
[2019-10-29 08:05] VITALS: BP 150/68
--- NOTE | 2019-10-29 08:23 | NUR ---
FAXED UPDATED CLINICALS - PN,OT,PT,LABS,MEDS TO [facility]. WILL CONFIRM WITH MELI/INTAKE THAT SHE RECEIVED.
--- NOTE | 2019-10-29 13:27 | NUR ---
PLAN TO DISCHARGE TO [facility] TODAY. TRANSPORT ARRANGED FOR 1700. NURSE TO CALL REPORT TO [phone]
[2019-10-29 16:28] VITALS: BP 158/77
[2019-10-29] MEDS ORDERED: LEVSIN0.125 MG PO (18:01)
--- NOTE | 2019-10-29 18:04 | NUR ---
PATIENT ALERT AND ORIENTED THROUGHOUT SHIFT. PATIENT AMBULATED WITH ASSISTANCE, WALKER, AND GAIT BELT TO COMMODE AND CHAIR. ALL SAFETY MEASURES MAINTAINED. PATIENT DENIED FURTHER NEEDS BEFORE DISCHARGE. MULLEN IN PLACE. IV REMOVED. ATTEMPTED TO CALL REPORT TO [facility] SEVERAL TIMES. WAS PLACED ON HOLD. CALL NOT ANSWERED.
[2019-10-29 18:12] VITALS: BP 158/77
--- NOTE | 2019-10-30 22:02 | CON ---
[address] [address] CONSULTATION Name: JAROD RIVERA Room: [address] IN .R.#: [id number] Admission: 10/16/19 Attend Phys: Erin Santizo Discharge: 10/29/19 Date of : 41 Report #: [id number] THIS REPORT FOR: //name// CC: Hilton Kelsey DATE OF SERVICE: 10/17/2019 NEPHROLOGY CONSULTATION CONSULTING PHYSICIAN: Sharon Kelsey MD REASON FOR NEPHROLOGY CONSULTATION: Acute kidney injury on chronic kidney disease stage 4. REASON FOR ADMISSION: Constipation. HISTORY OF PRESENT ILLNESS: This is a pleasant 73-year-old male with past medical history of type 2 diabetes, chronic kidney disease stage 4, baseline creatinine around 2.5, hypertension, coronary artery disease, obstructive sleep apnea, tremors, arthritis, right leg lesion, came in because he has not had a good bowel movement in one and half weeks. His abdomen was distended and he was given a bowel regimen. He was also found to have a BUN of 104 and a creatinine of 3.5. The patient was recently in September itself was admitted to [facility] because of shortness of breath and was treated for acute on chronic diastolic congestive heart failure and he also had a right leg wound which was treated. He was discharged on spironolactone 25 mg a day as well as torsemide 40 mg a day, which the patient states that he was taking. I am not sure if he was taking KINZA inhibitor or not. The patient denies taking NSAIDs. The patient is overall a poor historian. He says his maintains a list of medications. Yesterday, on abdominal imaging, he was found to have bilateral hydronephrosis with mass effect on the bladder, which is probably because of the prostate and a Leblanc catheter was placed and he had good output, 1600 mL out overnight indicating that he had some urinary retention. He also had bilateral renal cysts, which he has had before. Urology has been consulted for bilateral hydronephrosis and these bilateral renal cysts as well. He was also started on IV fluids yesterday and his diuretics were held and his BUN is down to 82 and creatinine is down to 2.7 today. His blood pressure is overall stable. ALLERGIES: No known allergies. REVIEW OF SYSTEMS: As mentioned in history of present illness, otherwise 10-point review of systems is negative. PAST MEDICAL AND SURGICAL HISTORY: Includes chronic diastolic congestive heart failure in September of 2019 at [facility]. [place] [address] CONSULTATION Name: JAROD RIVERA Room: [address] [place] M.R.#: [id number] Admission: 10/16/19 Attend Phys: Erin Santizo Discharge: 10/29/19 Date of : 41 Report #: [id number] Ejection fraction was 60-65% and diastolic dysfunction could not be assessed at that time. He has a history of chronic kidney disease stage 4, recent baseline creatinine is 2.5 and recently when he was at [facility], his discharge creatinine was around 2.7 to 2.8. He has history of hypertension, diabetes type 2, BPH, left hip replacement in 1994, sleep apnea, dyslipidemia, and osteoarthritis. He uses oxygen at home. Coronary artery disease. HOME MEDICATIONS: I do not think we have an accurate medication list. It looks like he was taking torsemide 40 mg a day, Aldactone 25 mg a day, fluticasone, tamsulosin, carvedilol, not sure if he was taking Vasotec or not, hydralazine, fish oil, ascorbic acid, cholecalciferol, aspirin, vitamin E, zinc, copper gluconate, doxazosin, clonidine, PreserVision tablet. FAMILY HISTORY: No history of any kidney disease in the family. SOCIAL HISTORY: Lives at home with his . Does not smoke or take alcohol or use illicit drugs. PHYSICAL EXAMINATION: VITAL SIGNS: His blood pressure is 123/61, temperature 36.6, pulse rate is 60, respiratory rate is 16, and his pulse ox is 96% on room air. GENERAL: He is awake, alert and oriented x 3, but overall not able to give me complete past medical history and a poor historian. HEAD AND EYES: Atraumatic, normocephalic. Normal conjunctivae. EARS, NOSE, AND THROAT: Normal ears and nose. Mucous membranes are dry. NECK: No JVD. CHEST: Bilaterally clear to auscultation anteriorly. No crackles or wheezing anteriorly. CARDIOVASCULAR: S1, S2 normal. No murmurs. ABDOMEN: Distended, obese, and otherwise soft. No masses felt. No tenderness. EXTREMITIES: Lower extremities: There is no lower extremity edema. Right lower extremity has a dressing in place, which looks clean. NEUROLOGICAL FUNCTION: Gross neurological function is intact. He is moving all his extremities. PSYCHIATRIC: Mood seems to be normal. LABORATORY DATA: WBC is 11.5, hemoglobin is 10.8, platelet count is 190. Sodium is 141, potassium is 3.7, BUN is 82, creatinine is 2.7, CO2 is 23. Other labs are reviewed. IMAGING: Renal ultrasound and abdominopelvic CT scan were reviewed. ASSESSMENT: 1. Acute kidney injury on chronic kidney disease stage 4, baseline creatinine around 2.5 and creatinine 3.5 on admission and this is in the setting of some intravascular volume depletion, use of diuretic, but bilateral hydronephrosis [address] [address] CONSULTATION Name: MIGUELJAROD Gilbert Room: [address] IN [facility].#: [id number] Admission: 10/16/19 Attend Phys: Erin Santizo Discharge: 10/29/19 Date of : 41 Report #: [id number] because of urinary retention in the setting of severe constipation. Renal ultrasound was reviewed, which showed bilateral hydronephrosis, bilateral renal cysts. UA was unremarkable. No protein or blood on dipstick. 2. History of benign prostatic hypertrophy. Retaining urine at the moment. Urology has been consulted. This was also exacerbated because of constipation. 3. Constipation. Being treated by primary team. 4. Right leg lesion. Primary team is treating that and he recently received treatment in the form of antibiotics at [facility]. 5. Chronic diastolic congestive heart failure. He is not in exacerbation, ejection fraction 60-65% in September of last year. 6. History of diabetes type 2. Deferred to primary for management. 7. Hypertension. Blood pressure is controlled. PLAN: 1. Continue IV fluids, but we will decrease the rate to 75 mL an hour. 2. Strict I's and O's. 3. Agree with Urology consult to evaluate his prostate and he can follow up as outpatient for his bilateral renal cysts as well. 4. His renal parameters are so far improving. There is no acute need for dialysis. 5. We did check serological workup recently when he was at [facility] and he was positive for atypical p-ANCA and MPO was slightly high, but he had no blood in his urine. The rest of the serological workup was negative. THANG, C3-C4, c-ANCA, p-ANCA were all negative. 6. Maintain Leblanc for now. 7. Avoid nephrotoxic agents. Avoid Fleets enema because of risk for phosphorous toxicity and worsening of his kidney function. Thank you for this consultation. We will continue to follow along with you. Discussed with the patient and the patient's nurse. <ELECTRONICALLY SIGNED> By: Selma Archuleta MD 10/30/19 [id number] Archuleta MD /nt
== END 2019-10-29 17:59 | DRG 683 ==
LOC: M.ERS 10:49 → M.TBA-ER 14:14 → M.3W 14:14
PROVIDERS: Family Medicine; Internal Medicine; Internal Medicine Nephrology; Personal Emergency Response Attendant; Specialist; ADMIT Internal Medicine
PROC: 5A09557 Assistance with Respiratory Ventilation, Greater than 96 Consecutive Hours, Continuous Positive Airway Pressure (ICD-10-PCS; principal; 2019-10-19)
DX: N17.9 Acute kidney failure, unspecified (principal); I50.32 Chronic diastolic (congestive) heart failure; I42.9 Cardiomyopathy, unspecified; N39.0 Urinary tract infection, site not specified; K56.609 Unspecified intestinal obstruction, unspecified as to partial versus complete obstruction; G93.40 Encephalopathy, unspecified; I13.0 Hypertensive heart and chronic kidney disease with heart failure and stage 1 through stage 4 chronic kidney disease, or unspecified chronic kidney disease; N28.1 Cyst of kidney, acquired; N40.1 Benign prostatic hyperplasia with lower urinary tract symptoms; Z96.642 Presence of left artificial hip joint; E78.00 Pure hypercholesterolemia, unspecified; M17.0 Bilateral primary osteoarthritis of knee; N28.89 Other specified disorders of kidney and ureter; N18.4 Chronic kidney disease, stage 4 (severe); E11.22 Type 2 diabetes mellitus with diabetic chronic kidney disease; E78.5 Hyperlipidemia, unspecified; I25.10 Atherosclerotic heart disease of native coronary artery without angina pectoris; G47.33 Obstructive sleep apnea (adult) (pediatric); N13.30 Unspecified hydronephrosis; R33.8 Other retention of urine; K56.41 Fecal impaction; Z87.891 Personal history of nicotine dependence; Z79.899 Other long term (current) drug therapy